=== PATIENT | female | born 1950 | race Caucasian/White ===

== ENCOUNTER → 2023-08-23 12:47 | Outpatient (REF) | payer OTHER, SELFPAY ==
[2023-08-23 14:11] LABS: % Basophils 0.5 % (0-2); % Eosinophils 5.2 % (0-6); % Immature Granulocytes 0.5 % (0-0.5); % Lymphocytes 19.1 % (20.5-51.1); % Monocytes 11.3 % (1.7-9.3); % Neutrophils 63.4 % (42.2-75.2); Absolute Eosinophils 0.4 10^3/uL (0-0.7); Absolute Lymphocytes 1.4 10^3/uL (1.2-3.4); Absolute Monocytes 0.8 10^3/uL (0.1-0.6); Absolute Neutrophils 4.6 10^3/uL (1.4-6.5); Hematocrit 38.9 % (37.0-47.0); Mean Corp Hgb Conc. 33.4 g/dL (33.0-37.0); Mean Corpuscular Hgb 29.1 pg (27.0-31.0); Mean Corpuscular Volume 87.2 fL (81.0-99.0); Mean Platelet Volume 9.9 fL (7.4-10.4); Nucleated Red Blood Cells % 0 %; Platelet Count 295 10^3/uL (130-400); Red Blood Cell Count 4.46 10^6/uL (4.20-5.40); Red Cell Dist. Width 13.3 % (11.5-14.5); White Blood Cell Count 7.3 10^3/uL (4.8-10.8)
[2023-08-23 14:34] LABS: Erythrocyte Sed Rate 23 mm/hour (0-20)
[2023-08-23 14:50] LABS: Glycohemoglobin (HgbA1c) 5.8 % (4.0-5.6)
[2023-08-23 14:54] LABS: TSH 0.68 uIU/ml (0.47-4.68)
[2023-08-23 15:13] LABS: Vitamin B12 318 pg/ml (239-931)
[2023-08-23 15:40] LABS: ALT (SGPT) 22 U/L (0-35); AST (SGOT) 28 U/L (14-36); Albumin 4.8 g/dl (3.5-5.0); Alkaline Phosphatase 50 U/L (38-126); Blood Urea Nitrogen 21 mg/dl (7-17); Calcium 10.2 mg/dl (8.4-10.2); Carbon Dioxide 26 mmol/L (22-30); Chloride 100 mmol/L (98-107); Glucose 92 mg/dl (70-99); Magnesium 2.1 mg/dl (1.6-2.3); Potassium 4.4 mmol/L (3.5-5.1); Sodium 137 mmol/L (135-145); Total Bilirubin 0.5 mg/dl (0.2-1.3); Total Protein 7.4 g/dl (6.3-8.2); eGFR > 60.00
[2023-08-26 13:19] LABS: Alpha 1 Globulin 0.31 g/dL (0.19-0.46); Alpha 2 Globulin 0.81 g/dL (0.48-1.05); Free Kappa Light Chains,Quant 25.84 mg/L (3.30-19.40); Free Lambda Light Chains,Quant 16.84 mg/L (5.71-26.30); IgA 255 mg/dL (68-408); IgG 653 mg/dL (768-1632); IgM 64 mg/dL (35-263); Immunofixation Electrophoresis IFE Done; Kappa/Lambda Fr Light Ratio 1.53 (0.26-1.65); Total Protein-Electrophoresis 7.4 g/dL (6.3-8.2)
== END ==
LOC: REG 12:47
PROVIDERS: ATTENDING PHYSICIAN Family Medicine
DX: M79.2 Neuralgia and neuritis, unspecified (principal); G57.93 Unspecified mononeuropathy of bilateral lower limbs
CPT/HCPCS: 36415; 80053; 82607; 82784; 83036; 83521; 83735; 84155; 84165; 84443; 85025; 85652; 86140; 86334; 95886; 95911

== ENCOUNTER → 2023-08-24 07:34 | Outpatient (REF) | payer OTHER, SELFPAY | LOC: EMG 07:34 | PROVIDERS: ATTENDING PHYSICIAN Family Medicine | DX: M79.2 Neuralgia and neuritis, unspecified (principal); G57.93 Unspecified mononeuropathy of bilateral lower limbs; R20.0 Anesthesia of skin | CPT/HCPCS: 95886; 95910 ==

== ENCOUNTER → 2023-11-23 10:03 | Outpatient (REF) | payer OTHER, SELFPAY ==
[2023-11-23 11:20] LABS: % Basophils 0.7 % (0-2); % Eosinophils 5.3 % (0-6); % Immature Granulocytes 0.4 % (0-0.5); % Lymphocytes 24.6 % (20.5-51.1); % Monocytes 18.2 % (1.7-9.3); % Neutrophils 50.8 % (42.2-75.2); Absolute Eosinophils 0.3 10^3/uL (0-0.7); Absolute Lymphocytes 1.4 10^3/uL (1.2-3.4); Absolute Neutrophils 2.9 10^3/uL (1.4-6.5); Hematocrit 40.1 % (37.0-47.0); Hemoglobin 13.5 g/dL (12.0-16.0); Mean Corp Hgb Conc. 33.7 g/dL (33.0-37.0); Mean Corpuscular Hgb 29.2 pg (27.0-31.0); Mean Corpuscular Volume 86.8 fL (81.0-99.0); Mean Platelet Volume 9.7 fL (7.4-10.4); Nucleated Red Blood Cells % 0 %; Platelet Count 245 10^3/uL (130-400); Red Blood Cell Count 4.62 10^6/uL (4.20-5.40); Red Cell Dist. Width 13.1 % (11.5-14.5); White Blood Cell Count 5.7 10^3/uL (4.8-10.8)
[2023-11-23 11:34] LABS: ALT (SGPT) 18 U/L (0-35); AST (SGOT) 26 U/L (14-36); Albumin 4.8 g/dl (3.5-5.0); Alkaline Phosphatase 59 U/L (38-126); Blood Urea Nitrogen 25 mg/dl (7-17); Calcium 10.1 mg/dl (8.4-10.2); Carbon Dioxide 23 mmol/L (22-30); Chloride 103 mmol/L (98-107); Glucose 106 mg/dl (70-99); Potassium 3.5 mmol/L (3.5-5.1); Sodium 140 mmol/L (135-145); Total Bilirubin 0.5 mg/dl (0.2-1.3); Total Protein 7.4 g/dl (6.3-8.2); eGFR > 60.00
[2023-11-23 11:43] LABS: D-Dimer 0.53 ug/mlFEU (0.00-0.50)
[2023-11-23 11:50] LABS: Free T4 0.81 ng/dl (0.78-2.19)
== END ==
LOC: RCS 10:03
PROVIDERS: ATTENDING PHYSICIAN Nurse Practitioner Family; FAMILY PHYSICIAN Family Medicine
DX: R05.1 Acute cough (principal); R00.0 Tachycardia, unspecified
CPT/HCPCS: 36415; 71046; 80053; 84439; 84443; 85025; 85379; 93005

== ENCOUNTER → 2024-09-11 13:30 | Outpatient (REF) | payer MEDICARE, SELFPAY | LOC: MRI 3T 13:30 | PROVIDERS: ATTENDING PHYSICIAN Internal Medicine Cardiovascular Disease; FAMILY PHYSICIAN Family Medicine | DX: I10 Essential (primary) hypertension (principal); I70.0 Atherosclerosis of aorta; I25.10 Atherosclerotic heart disease of native coronary artery without angina pectoris | CPT/HCPCS: 74183; A9575 ==